=== PATIENT | male | born 1935 | race African-American/Black ===

== ENCOUNTER → 2018-01-07 | Day surgery (SDC) | payer OTHER, MEDICAID ==
[~2018-01-07] MED LIST: TETRACAINE 0.5% OPHTH 1 DOSE AFFEYE ONE; VIGAMOX 0.5% OPHTH 1 DOSE AFFEYE ONE
[2018-01-07 14:05] VITALS: BP 137/71
== END ==
LOC: SURG1 13:41
PROVIDERS: ATTEND Ophthalmology
PROC: 08QD3ZZ Repair Left Iris, Percutaneous Approach (ICD-10-PCS; principal; 2018-01-07 22:15)
DX: H40.1124 Primary open-angle glaucoma, left eye, indeterminate stage (principal)
CPT/HCPCS: 65855